=== PATIENT | female | born 1940 | race Caucasian/White ===

== ENCOUNTER 2020-05-24 17:45 | Inpatient (IN) | payer OTHER, SELFPAY ==
[~2020-05-24] VITALS: Ht 157.5 cm; Wt 57.6 kg
[2020-05-24 18:30] VITALS: BP_SYST 175
[2020-05-24 19:09] LABS: BASOPHILS % (AUTO) 0.3 % (0.0-2.0); HEMATOCRIT 44.7 % (36-48); HEMOGLOBIN 15.2 g/dL (12.0-16.0); LYMPHOCYTES # (AUTO) 0.6 K/uL (1.0-5.5); LYMPHOCYTES % (AUTO) 8.2 % (20.5-51.5); MEAN CORPUSCULAR HEMOGLOBIN 32 pg (27-31); MEAN CORPUSCULAR HGB CONC 34 % (32-36); MEAN CORPUSCULAR VOLUME 95 fL (79.0-98.0); MONOCYTES # (AUTO) 0.5 K/uL (0.0-1.0); MONOCYTES % (AUTO) 6.6 % (1.7-9.3); NEUTROPHILS # (AUTO) 6.4 K/uL (1.8-7.7); NEUTROPHILS % (AUTO) 84.9 % (40.0-70.0); PLATELET COUNT (AUTO) 194 K/uL (130-430); RED BLOOD CELL COUNT(AUTO) 4.72 MIL/uL (4.2-6.2); RED CELL DISTRIBUTION WIDTH 13.7 % (9.0-15.0); WHITE BLOOD COUNT (AUTO) 7.6 K/uL (4.8-10.8)
[2020-05-24 19:29] LABS: ANION GAP 13 (5-15); CALCIUM 8.5 mg/dL (8.4-11.0); CHLORIDE 105 mmol/L (98-107); GLUCOSE 123 mg/dL (70-99); POTASSIUM 3.6 mmol/L (3.5-5.1); SODIUM SERUM 143 mmol/L (136-145); UREA NITROGEN, BLOOD 26 mg/dL (8-21)
[2020-05-24 19:46] LABS: ALANINE AMINOTRANSFERASE 27 U/L (12-78); ALBUMIN 3.3 g/dL (3.4-4.8); ASPARTATE AMINOTRANSFERASE 60 U/L (10-37); LACTATE DEHYDROGENASE 398 U/L (81-234); TOTAL BILIRUBIN 0.8 mg/dL (0.0-1.0)
[2020-05-24 19:48] LABS: INR 1.1 (0.8-1.2)
[2020-05-24 20:12] LABS: CKMB RELATIVE INDEX 1.1 (0.0-2.9); CREATINE KINASE MB 3.9 ng/mL (0-3.6)
[2020-05-24 20:54] LABS: C-REACTIVE PROTEIN QUANT 17.9 mg/dL (0-0.5)
[2020-05-24] MEDS ORDERED: DEXAMETHASONE SOD PHOSPHATE 4 MG/ML VIAL IVP ONE (21:15)
[2020-05-24] MEDS ORDERED: ALBUTEROL MDI INHALATION 8 GM INH INH PRN (21:15)
[2020-05-24] MEDS ORDERED: AZITHROMYCIN 500 MG in NS 250 ML IV ONE (21:15)
[2020-05-24] MEDS ORDERED: ENOXAPARIN SODIUM 40 MG/0.4 ML SYRINGE SUBCUT ONE (21:15)
[2020-05-24] MEDS: D5/0.45 NS 1,000 ML IV SCH (21:15)
[2020-05-24] MEDS ORDERED: AZITHROMYCIN 500 MG/VIAL (ZITHROMAX) IV ONE (21:19)
[2020-05-24 21:32] LABS: BILIRUBIN,URINE 1+ (NEGATIVE); BLOOD, URINE 1+ (NEGATIVE); CLARITY/URINE CLEAR (CLEAR); COLOR,URINE YELLOW (YELLOW); GLUCOSE,URINE NEGATIVE (NEGATIVE); KETONES,URINE 3+ (NEGATIVE); LEUKOCYTE ESTERASE ,URINE NEGATIVE (NEGATIVE); NITRITE, URINE NEGATIVE (NEGATIVE); PROTEIN URINE 2+ (NEGATIVE); UROBILINOGEN,URINE 0.2 (0.2-1.0)
[2020-05-24 21:47] LABS: BACTERIA,URINE MANY /HPF (None Seen)
[2020-05-24 21:48] LABS: MUCUS,URINE 3+ /LPF (None Seen)
[2020-05-24] MEDS ORDERED: NACL 0.9% 1,000 ML IV ONE (22:00)
[2020-05-24 22:53] VITALS: BP_SYST 151
[2020-05-24] MEDS: DEXAMETHASONE SOD PHOSPHATE 10 MG/ML VIAL IVP SCH (23:00)
[2020-05-24] MEDS ORDERED: PROMETHAZINE-DM 6.25 MG-15 MG/5 ML UDC PO PRN (23:15)
[2020-05-25] VITALS: BP_SYST 124
[2020-05-25] MEDS ORDERED: cefTRIAXone 1 GM IVPB PREMIX 50 ML IV ONE (00:54)
[2020-05-25] MEDS: cefTRIAXone 1 GM in D5W 50 ML IV SCH ×2 (01:10→22:09)
[2020-05-25 08:00] VITALS: BP_SYST 127
[2020-05-25] MEDS ORDERED: ENOXAPARIN SODIUM 40 MG/0.4 ML SYRINGE SUBCUT SCH (09:00)
[2020-05-25] MEDS: ENOXAPARIN SODIUM 60 MG/0.6 ML SYRINGE SUBCUT SCH ×2 (09:00→22:26)
[2020-05-25] MEDS: AZITHROMYCIN 500 MG in NS 250 ML IV SCH (09:43)
[2020-05-25] MEDS: MAGNESIUM OXIDE 400 MG TABLET PO SCH ×2 (09:43→22:09)
[2020-05-25] MEDS: ASCORBIC ACID 500 MG TABLET PO SCH ×2 (09:43→22:09)
[2020-05-25] MEDS: CHOLECALCIFEROL (VITAMIN D3) 5,000 UNIT TABLET PO SCH (09:43)
[2020-05-25 11:08] VITALS: BP_SYST 120
[2020-05-25] MEDS: D5/0.45 NS 1,000 ML IV SCH (14:32)
[2020-05-25 20:00] VITALS: BP_SYST 144
[2020-05-25] MEDS: DEXAMETHASONE SOD PHOSPHATE 10 MG/ML VIAL IVP SCH (22:09)
[2020-05-26 00:08] VITALS: BP_SYST 145
[2020-05-26] MEDS: D5/0.45 NS 1,000 ML IV SCH (06:00)
[2020-05-26 08:00] VITALS: BP_SYST 122
[2020-05-26 08:06] LABS: ANION GAP 11 (5-15); BASOPHILS % (AUTO) 0.2 % (0.0-2.0); CALCIUM 7.6 mg/dL (8.4-11.0); CHLORIDE 106 mmol/L (98-107); CREATININE 0.57 mg/dL (0.55-1.30); GLUCOSE 186 mg/dL (70-99); HEMATOCRIT 40.5 % (36-48); HEMOGLOBIN 13.8 g/dL (12.0-16.0); LYMPHOCYTES # (AUTO) 0.6 K/uL (1.0-5.5); LYMPHOCYTES % (AUTO) 6.2 % (20.5-51.5); MEAN CORPUSCULAR HEMOGLOBIN 32 pg (27-31); MEAN CORPUSCULAR HGB CONC 34 % (32-36); MEAN CORPUSCULAR VOLUME 94 fL (79.0-98.0); MONOCYTES # (AUTO) 0.5 K/uL (0.0-1.0); MONOCYTES % (AUTO) 4.8 % (1.7-9.3); NEUTROPHILS # (AUTO) 8.5 K/uL (1.8-7.7); NEUTROPHILS % (AUTO) 88.8 % (40.0-70.0); PLATELET COUNT (AUTO) 192 K/uL (130-430); RED CELL DISTRIBUTION WIDTH 13.7 % (9.0-15.0); SODIUM SERUM 142 mmol/L (136-145); UREA NITROGEN, BLOOD 13 mg/dL (8-21); WHITE BLOOD COUNT (AUTO) 9.6 K/uL (4.8-10.8)
[2020-05-26] MEDS: AZITHROMYCIN 500 MG in NS 250 ML IV SCH (08:54)
[2020-05-26] MEDS: CHOLECALCIFEROL (VITAMIN D3) 5,000 UNIT TABLET PO SCH (08:54)
[2020-05-26] MEDS: MAGNESIUM OXIDE 400 MG TABLET PO SCH ×2 (08:54→23:30)
[2020-05-26] MEDS: ASCORBIC ACID 500 MG TABLET PO SCH ×2 (08:54→23:30)
[2020-05-26] MEDS: ENOXAPARIN SODIUM 60 MG/0.6 ML SYRINGE SUBCUT SCH ×2 (09:00→23:30)
[2020-05-26 11:54] VITALS: BP_SYST 120
[2020-05-26] MEDS ORDERED: FAMOTIDINE 20 MG TABLET PO ONE (13:45)
[2020-05-26] MEDS ORDERED: POTASSIUM CHLORIDE 20 MEQ TAB.PRT.SR PO ONE (13:45)
[2020-05-26 16:27] VITALS: BP_SYST 139
[2020-05-26 20:00] VITALS: BP_SYST 128
[2020-05-26] MEDS: POTASSIUM CHLORIDE 20 MEQ TAB.PRT.SR PO SCH (23:30)
[2020-05-26] MEDS: FAMOTIDINE 20 MG TABLET PO SCH (23:30)
[2020-05-26] MEDS: CALCIUM CARBONATE 500 MG/ TAB.CHEW PO SCH (23:30)
[2020-05-27] VITALS: BP_SYST 133
[2020-05-27 07:09] LABS: BASOPHILS % (AUTO) 0.2 % (0.0-2.0); HEMATOCRIT 39.1 % (36-48); HEMOGLOBIN 13.4 g/dL (12.0-16.0); LYMPHOCYTES # (AUTO) 0.6 K/uL (1.0-5.5); LYMPHOCYTES % (AUTO) 7.6 % (20.5-51.5); MEAN CORPUSCULAR HEMOGLOBIN 32 pg (27-31); MEAN CORPUSCULAR HGB CONC 34 % (32-36); MEAN CORPUSCULAR VOLUME 94 fL (79.0-98.0); MONOCYTES # (AUTO) 0.6 K/uL (0.0-1.0); MONOCYTES % (AUTO) 7.5 % (1.7-9.3); NEUTROPHILS # (AUTO) 6.8 K/uL (1.8-7.7); NEUTROPHILS % (AUTO) 84.7 % (40.0-70.0); PLATELET COUNT (AUTO) 215 K/uL (130-430); RED BLOOD CELL COUNT(AUTO) 4.18 MIL/uL (4.2-6.2); RED CELL DISTRIBUTION WIDTH 13.7 % (9.0-15.0); WHITE BLOOD COUNT (AUTO) 8.1 K/uL (4.8-10.8)
[2020-05-27 07:54] LABS: ANION GAP 8 (5-15); CALCIUM 7.9 mg/dL (8.4-11.0); CHLORIDE 109 mmol/L (98-107); CREATININE 0.49 mg/dL (0.55-1.30); GLUCOSE 154 mg/dL (70-99); POTASSIUM 4.1 mmol/L (3.5-5.1); SODIUM SERUM 144 mmol/L (136-145); UREA NITROGEN, BLOOD 16 mg/dL (8-21)
[2020-05-27 10:15] VITALS: BP_SYST 135
[2020-05-27] MEDS: CHOLECALCIFEROL (VITAMIN D3) 5,000 UNIT TABLET PO SCH (10:15)
[2020-05-27] MEDS: CALCIUM CARBONATE 500 MG/ TAB.CHEW PO SCH ×4 (10:15→22:04)
[2020-05-27] MEDS: ENOXAPARIN SODIUM 60 MG/0.6 ML SYRINGE SUBCUT SCH ×2 (10:15→22:08)
[2020-05-27] MEDS: AZITHROMYCIN 500 MG in NS 250 ML IV SCH (10:15)
[2020-05-27] MEDS: FAMOTIDINE 20 MG TABLET PO SCH ×2 (10:15→22:03)
[2020-05-27] MEDS: MAGNESIUM OXIDE 400 MG TABLET PO SCH ×2 (10:15→22:03)
[2020-05-27] MEDS: ASCORBIC ACID 500 MG TABLET PO SCH ×2 (10:15→22:02)
[2020-05-27] MEDS: POTASSIUM CHLORIDE 20 MEQ TAB.PRT.SR PO SCH ×2 (10:15→22:04)
[2020-05-27 11:32] VITALS: BP_SYST 131
[2020-05-27 12:17] LABS: C-REACTIVE PROTEIN QUANT 3.3 mg/dL (0-0.5)
[2020-05-27 15:21] VITALS: BP_SYST 147
[2020-05-27 20:00] VITALS: BP_SYST 151
[2020-05-27] MEDS: cefTRIAXone 1 GM in D5W 50 ML IV SCH ×3 (22:14)
[2020-05-27] MEDS: DEXAMETHASONE SOD PHOSPHATE 10 MG/ML VIAL IVP SCH ×2 (22:15)
[2020-05-28 00:20] VITALS: BP_SYST 153
[2020-05-28 10:00] VITALS: BP_SYST 137
[2020-05-28] MEDS: AZITHROMYCIN 500 MG in NS 250 ML IV SCH (10:00)
[2020-05-28] MEDS: FAMOTIDINE 20 MG TABLET PO SCH ×2 (10:00→22:47)
[2020-05-28] MEDS: CALCIUM CARBONATE 500 MG/ TAB.CHEW PO SCH ×4 (10:00→22:48)
[2020-05-28] MEDS: ENOXAPARIN SODIUM 60 MG/0.6 ML SYRINGE SUBCUT SCH ×2 (10:00→22:52)
[2020-05-28] MEDS: POTASSIUM CHLORIDE 20 MEQ TAB.PRT.SR PO SCH ×2 (10:00→22:47)
[2020-05-28] MEDS: CHOLECALCIFEROL (VITAMIN D3) 5,000 UNIT TABLET PO SCH (10:00)
[2020-05-28] MEDS: MAGNESIUM OXIDE 400 MG TABLET PO SCH ×2 (10:00→22:47)
[2020-05-28] MEDS: ASCORBIC ACID 500 MG TABLET PO SCH ×2 (10:00→22:48)
[2020-05-28 12:12] VITALS: BP_SYST 138
[2020-05-28 16:15] VITALS: BP_SYST 156
[2020-05-28 20:00] VITALS: BP_SYST 151
[2020-05-28] MEDS: DEXAMETHASONE SOD PHOSPHATE 10 MG/ML VIAL IVP SCH (22:49)
[2020-05-28] MEDS: cefTRIAXone 1 GM in D5W 50 ML IV SCH (22:51)
[2020-05-29] VITALS: BP_SYST 161
[2020-05-29 07:49] LABS: BASOPHILS % (AUTO) 0.3 % (0.0-2.0); HEMATOCRIT 42.1 % (36-48); HEMOGLOBIN 14.3 g/dL (12.0-16.0); LYMPHOCYTES # (AUTO) 0.7 K/uL (1.0-5.5); LYMPHOCYTES % (AUTO) 6.9 % (20.5-51.5); MEAN CORPUSCULAR HEMOGLOBIN 32 pg (27-31); MEAN CORPUSCULAR HGB CONC 34 % (32-36); MEAN CORPUSCULAR VOLUME 95 fL (79.0-98.0); MONOCYTES # (AUTO) 0.5 K/uL (0.0-1.0); MONOCYTES % (AUTO) 4.7 % (1.7-9.3); NEUTROPHILS # (AUTO) 9.5 K/uL (1.8-7.7); NEUTROPHILS % (AUTO) 88.1 % (40.0-70.0); PLATELET COUNT (AUTO) 261 K/uL (130-430); RED BLOOD CELL COUNT(AUTO) 4.45 MIL/uL (4.2-6.2); RED CELL DISTRIBUTION WIDTH 13.7 % (9.0-15.0); WHITE BLOOD COUNT (AUTO) 10.8 K/uL (4.8-10.8)
[2020-05-29 08:00] VITALS: BP_SYST 144
[2020-05-29 08:05] LABS: ANION GAP 8 (5-15); CALCIUM 8.5 mg/dL (8.4-11.0); CHLORIDE 102 mmol/L (98-107); CREATININE 0.62 mg/dL (0.55-1.30); GLUCOSE 149 mg/dL (70-99); POTASSIUM 4.4 mmol/L (3.5-5.1); SODIUM SERUM 135 mmol/L (136-145); UREA NITROGEN, BLOOD 19 mg/dL (8-21)
[2020-05-29] MEDS: CALCIUM CARBONATE 500 MG/ TAB.CHEW PO SCH ×4 (10:13→17:01)
[2020-05-29] MEDS: POTASSIUM CHLORIDE 20 MEQ TAB.PRT.SR PO SCH ×2 (10:14→10:51)
[2020-05-29] MEDS: AZITHROMYCIN 500 MG in NS 250 ML IV SCH ×2 (10:14→10:51)
[2020-05-29] MEDS: ASCORBIC ACID 500 MG TABLET PO SCH ×2 (10:18→10:51)
[2020-05-29] MEDS: ENOXAPARIN SODIUM 60 MG/0.6 ML SYRINGE SUBCUT SCH (10:18)
[2020-05-29] MEDS: MAGNESIUM OXIDE 400 MG TABLET PO SCH ×2 (10:18→10:51)
[2020-05-29] MEDS: CHOLECALCIFEROL (VITAMIN D3) 5,000 UNIT TABLET PO SCH ×2 (10:19→10:52)
[2020-05-29] MEDS: FAMOTIDINE 20 MG TABLET PO SCH ×2 (10:20→10:51)
[2020-05-29] MEDS ORDERED: HALOPERIDOL LACTATE 5 MG/ML VIAL ONE (11:09)
[2020-05-29] MEDS ORDERED: DIPHENHYDRAMINE INJ 50 MG/ML VIAL ONE (11:09)
[2020-05-29] MEDS: HALOPERIDOL LACTATE 5 MG/ML VIAL IM PRN ×2 (11:18→17:02)
[2020-05-29] MEDS: DIPHENHYDRAMINE INJ 50 MG/ML VIAL IM PRN ×2 (11:18→17:02)
[2020-05-29 15:39] VITALS: BP_SYST 134
[2020-05-29 16:00] VITALS: BP_SYST 138
== END 2020-05-29 18:00 | DRG 871 ==
LOC: SED 17:45 → STU 21:10
PROVIDERS: ADMIT Internal Medicine; ATTEND Internal Medicine
DX: A41.89 Other specified sepsis (principal); U07.1 COVID-19; J12.82 Pneumonia due to coronavirus disease 2019; J96.01 Acute respiratory failure with hypoxia; N39.0 Urinary tract infection, site not specified; E44.1 Mild protein-calorie malnutrition; E87.6 Hypokalemia; E86.0 Dehydration; I45.10 Unspecified right bundle-branch block; D72.810 Lymphocytopenia; F03.90 Unspecified dementia, unspecified severity, without behavioral disturbance, psychotic disturbance, mood disturbance, and anxiety; M19.90 Unspecified osteoarthritis, unspecified site; M81.0 Age-related osteoporosis without current pathological fracture; Z68.23 Body mass index [BMI] 23.0-23.9, adult
CPT/HCPCS: 36415; 36600; 71045; 80048; 80053; 81000-TC; 82550-TC; 82553-TC; 82728; 82803-TC; 83605; 83615-TC; 83880; 84484; 85025; 85379; 85384-TC; 85610-TC; 85730-TC; 86140; 87040-TC; 87086; 93005; 96361; 96365; 96372; 96375; 99291; G0378; J0456; J0696; J1100; J1200; J1630; J1650; J7050; J7060